=== PATIENT | male | born 1935 | race Caucasian/White ===

== ENCOUNTER 2022-11-18 06:01 | Observation (INO) | payer OTHER ==
[2022-11-12 11:44] LABS: BASOPHILS % (AUTO) 0.9 % (0.0-5.0); EOSINOPHILS % (AUTO) 3.2 % (0.0-8.0); HEMATOCRIT 45.5 % (42-54); LYMPHOCYTES % (AUTO) 24.3 % (21.0-51.0); MEAN CORPUSCULAR HEMOGLOBIN 31.4 pg (27.0-33.0); MEAN CORPUSCULAR HGB CONC 32.3 g/dL (32.0-36.0); MEAN CORPUSCULAR VOLUME 97.2 fL (79-99); MONOCYTES % (AUTO) 8.6 % (3.0-13.0); NEUTROPHILS % (AUTO) 62.9 % (40.0-77.0); PLATELET COUNT (AUTO) 200 K/uL (130-400); RED BLOOD CELL COUNT(AUTO) 4.68 MIL/uL (4.50-6.20); RED CELL DISTRIBUTION WIDTH 13.3 % (11.0-15.5); WHITE BLOOD COUNT (AUTO) 6.9 K/uL (4.8-10.8)
[2022-11-12 11:47] VITALS: BP 125/61
[2022-11-12 11:51] LABS: CREATININE 1.1 mg/dL (0.5-1.5); POTASSIUM 4.5 mmol/L (3.5-5.1)
[2022-11-12 11:53] LABS: INR 0.97 (0.85-1.15); PROTHROMBIN TIME 10.6 SEC (9.6-11.6)
[2022-11-12 11:54] LABS: PARTIAL THROMBOPLASTIN TIME 29.6 SEC (26.3-35.5)
[~2022-11-18] VITALS: Ht 175.3 cm; Wt 77.6 kg
[2022-11-18] VITALS (28 sets, daily range): BP systolic 79–149; BP diastolic 46–78
[~2022-11-18 06:01] MED LIST: GARL100T PO; LISI10TA24 PO; MULT-1367 PO; VITAMIN C PO; VITAMIN D3 PO
[2022-11-18] MEDS ORDERED: CEFAZOLIN SODIUM 2 GM VIAL ONE (06:21)
[2022-11-18] MEDS ORDERED: LACTATED RINGERS 1000ML 1,000 ML IV ONE (06:21)
[2022-11-18] MEDS ORDERED: LIDOCAINE HCL-MPF 1% 5ML AMP IJ ONE (06:56)
[2022-11-18] MEDS ORDERED: ROCURONIUM 10MG/1ML SYR 10 MG/ML ML ONE (06:56)
[2022-11-18] MEDS ORDERED: PROPOFOL 10 MG/ML 20ML VIAL IV ONE (06:56)
[2022-11-18] MEDS ORDERED: TRANEXAMIC ACID 1000MG/10ML ONE (07:00)
[2022-11-18] MEDS ORDERED: FENTANYL CITRATE PF 50 MCG/1 ML 2ML VIAL ONE ×2 (07:10→07:58)
[2022-11-18] MEDS ORDERED: LACTATED RINGERS 1000ML 1,000 ML IV SCH (07:30)
[2022-11-18] MEDS ORDERED: CEFAZOLIN SODIUM 2 GM VIAL IV ONE (07:40)
[2022-11-18] MEDS ORDERED: POTASSIUM CHLORIDE 20MEQ/100ML 100 ML IV PRN (08:00)
[2022-11-18] MEDS ORDERED: ONDANSETRON 4MG INJ IVP PRN (08:00)
[2022-11-18] MEDS ORDERED: KCL 20 MEQ ERTAB PO PRN (08:00)
[2022-11-18] MEDS ORDERED: MORPHINE 4 MG SYG IVP PRN (08:00)
[2022-11-18] MEDS ORDERED: HYDROCODONE/ACETAMINOPHEN 5/325 MG TAB PO PRN (08:00)
[2022-11-18] MEDS ORDERED: POTASSIUM CHLORIDE 10% ELIXIR 20 MEQ/15 ML UDCUP PO PRN (08:00)
[2022-11-18] MEDS ORDERED: LIDOCAINE HCL-MPF 1% 2ML VIAL IV PRN (08:00)
[2022-11-18] MEDS ORDERED: GLYCOPYRROLATE 1 MG/5 ML SYRINGE ONE (08:13)
[2022-11-18] MEDS ORDERED: NEOSTIGMINE 5MG/5ML SYR IV ONE (08:13)
[2022-11-18] MEDS ORDERED: EPINEPHRINE PF 1MG (1:1,000) 1 MG/ML AMP ONE (08:16)
[2022-11-18] MEDS ORDERED: ROPIVACAINE 0.5% 5MG/ML 30ML IJ ONE (08:23)
[2022-11-18] MEDS ORDERED: DEXAMETHASONE SOD PHOSPHATE 10MG/ML 1ML VIAL ONE (08:30)
[2022-11-18] MEDS ORDERED: ROPIVACAINE IARTIC ONE (08:52)
[2022-11-18] MEDS ORDERED: EPINEPHRINE PF 1MG (1:1,000) 1 MG/ML AMP INJ ONE (08:52)
[2022-11-18] MEDS ORDERED: KETOROLAC 15MG/ML VIAL (15MG/ML) IARTIC ONE (08:52)
[2022-11-18] MEDS: FAMOTIDINE 20MG TAB PO SCH ×2 (09:00→20:05)
[2022-11-18] MEDS: POLYETHYLENE GLYCOL 3350 17 GM POWD.PACK PO SCH (09:00)
[2022-11-18] MEDS: ACETAMINOPHEN 1,000 MG/100 ML VIAL IV SCH ×3 (10:06→20:05)
[2022-11-18] MEDS: 0.9%NACL 1000ML 1,000 ML IV SCH ×2 (11:06→16:32)
[2022-11-18] MEDS: HYDROCODONE/ACETAMINOPHEN 10/325 MG TAB PO PRN (11:06)
[2022-11-18] MEDS: IBUPROFEN 800MG + NS 250ML IV SCH ×2 (12:33→18:42)
[2022-11-18] MEDS: CEFAZOLIN SODIUM 1 GM VIAL IVP SCH ×2 (14:42→20:08)
[2022-11-18] MEDS: LISINOPRIL 10 MG TABLET PO SCH (20:05)
[2022-11-19] MEDS: IBUPROFEN 800MG + NS 250ML IV SCH (03:57)
[2022-11-19] MEDS: 0.9%NACL 1000ML 1,000 ML IV SCH (04:00)
[2022-11-19 04:39] VITALS: BP 102/47
[2022-11-19 05:12] LABS: HEMATOCRIT 34.9 % (42-54); MEAN CORPUSCULAR HEMOGLOBIN 31.2 pg (27.0-33.0); MEAN CORPUSCULAR HGB CONC 32.4 g/dL (32.0-36.0); MEAN CORPUSCULAR VOLUME 96.4 fL (79-99); RED BLOOD CELL COUNT(AUTO) 3.62 MIL/uL (4.50-6.20); RED CELL DISTRIBUTION WIDTH 13.3 % (11.0-15.5); WHITE BLOOD COUNT (AUTO) 12.5 K/uL (4.8-10.8)
[2022-11-19 05:32] LABS: CREATININE 1.2 mg/dL (0.5-1.5); POTASSIUM 4.2 mmol/L (3.5-5.1)
[2022-11-19] MEDS: POLYETHYLENE GLYCOL 3350 17 GM POWD.PACK PO SCH (07:48)
[2022-11-19] MEDS: FAMOTIDINE 20MG TAB PO SCH ×2 (07:48→21:04)
[2022-11-19] MEDS: ENOXAPARIN SODIUM 30 MG/0.3 ML SQ SCH (07:48)
[2022-11-19] MEDS: HYDROCODONE/ACETAMINOPHEN 10/325 MG TAB PO PRN ×2 (07:56→18:58)
[2022-11-19 08:00] VITALS: BP 113/56
[2022-11-19] MEDS ORDERED: ROPIVICAINE 250MG+KETOROLAC 15MG+EPINEPHRINE 0.3+CLONIDINE 80 IV PRN ×5 (08:00)
[2022-11-19 12:00] VITALS: BP 81/48
[2022-11-19 16:00] VITALS: BP 135/85
[2022-11-19 20:00] VITALS: BP 141/75
[2022-11-19] MEDS: LISINOPRIL 10 MG TABLET PO SCH (21:00)
[2022-11-20 05:04] VITALS: BP 139/65
[2022-11-20] MEDS: HYDROCODONE/ACETAMINOPHEN 10/325 MG TAB PO PRN ×3 (06:58→23:06)
[2022-11-20 08:00] VITALS: BP 114/65
[2022-11-20] MEDS: ENOXAPARIN SODIUM 30 MG/0.3 ML SQ SCH (09:28)
[2022-11-20] MEDS: FAMOTIDINE 20MG TAB PO SCH ×2 (09:28→20:31)
[2022-11-20] MEDS: POLYETHYLENE GLYCOL 3350 17 GM POWD.PACK PO SCH (09:28)
[2022-11-20 11:59] VITALS: BP 104/57
[2022-11-20 16:00] VITALS: BP 112/62
[2022-11-20 20:00] VITALS: BP 143/74
[2022-11-20] MEDS: LISINOPRIL 10 MG TABLET PO SCH (20:07)
[2022-11-21] VITALS: BP 120/58
[2022-11-21 04:00] VITALS: BP 120/64
[2022-11-21 07:30] VITALS: BP 134/74
[2022-11-21] MEDS ORDERED: BISACODYL 10 MG SUPP.RECT RC PRN (08:00)
[2022-11-21] MEDS: POLYETHYLENE GLYCOL 3350 17 GM POWD.PACK PO SCH (08:45)
[2022-11-21] MEDS: FAMOTIDINE 20MG TAB PO SCH (08:46)
[2022-11-21] MEDS: HYDROCODONE/ACETAMINOPHEN 10/325 MG TAB PO PRN (08:46)
[2022-11-21] MEDS: ENOXAPARIN SODIUM 30 MG/0.3 ML SQ SCH (08:47)
[2022-11-21] MEDS ORDERED: HYDROXYZINE 10 MG TABLET PO PRN (09:30)
[2022-11-21 11:15] VITALS: BP 89/58
== END 2022-11-21 12:45 | disposition home or self-care (01) ==
LOC: DAH 06:01 → DAHIP 06:02 → DAH 06:02 → 4DH 11:00
PROVIDERS: ADMIT Orthopaedic Surgery; ATTEND Orthopaedic Surgery
DX: M16.11 Unilateral primary osteoarthritis, right hip (principal); Z20.822 Contact with and (suspected) exposure to COVID-19; I10 Essential (primary) hypertension; M21.70 Unequal limb length (acquired), unspecified site; M48.00 Spinal stenosis, site unspecified; Z79.899 Other long term (current) drug therapy; Z98.890 Other specified postprocedural states; Z68.25 Body mass index [BMI] 25.0-25.9, adult
CPT/HCPCS: 80048 ×2; 85025; 85610; 85730; 87426; 36415 ×2; 93005; 87641; 27130; 97161; 96376; 96365; 96366 ×2; 96375; 96367; 73503; 96372 ×3; 85027; 97116 ×5; 97039 ×7; A6260; C1776 ×5; G0378 ×72; A4663; A4606; J7120; J3010 ×2; J0690 ×5; J3490 ×3; J1100; J2710; J0171 ×2; J2704; J2795 ×2; J1885; A6212; A5120; A4215; A4223; A4222; A4221; J1650 ×4; J1741 ×4; G0168; A4649 ×5